=== PATIENT | male | born 1965 | race Caucasian/White ===

== ENCOUNTER → 2016-08-07 | Outpatient (CLI) | payer MEDICARE, MEDICAID | LOC: RAD 15:04 | DX: R22.42 Localized swelling, mass and lump, left lower limb (principal) ==

== ENCOUNTER → 2017-03-06 | Outpatient (CLI) | payer MEDICARE, MEDICAID | LOC: LAB 15:57 | DX: M81.0 Age-related osteoporosis without current pathological fracture (principal); L89.322 Pressure ulcer of left buttock, stage 2; J45.909 Unspecified asthma, uncomplicated; R73.02 Impaired glucose tolerance (oral); R97.20 Elevated prostate specific antigen [PSA]; N52.03 Combined arterial insufficiency and corporo-venous occlusive erectile dysfunction; R20.2 Paresthesia of skin ==

== ENCOUNTER → 2017-08-01 | Outpatient (CLI) | payer MEDICARE, MEDICAID | LOC: LAB 11:10 | PROVIDERS: Internal Medicine | DX: D64.9 Anemia, unspecified (principal) ==

== ENCOUNTER → 2018-03-18 | Outpatient (CLI) | payer MEDICARE, MEDICAID ==
[2018-03-19 01:02] LABS: FOLLICLE STIMULATING HORMONE 24.9 mIU/mL (1.0-12.0); LUTENIZING HORMONE 13.9 mIU/mL (0.6-12.1)
[2018-03-19 01:03] LABS: PROLACTIN 15.2 ng/mL (3.5-19.4)
== END ==
LOC: LAB 10:41
PROVIDERS: Internal Medicine
DX: E29.1 Testicular hypofunction (principal)

== ENCOUNTER → 2018-03-27 | Outpatient (CLI) | payer MEDICARE, MEDICAID | LOC: CARDLAB 08:00 → CARDREHAB 11:37 | DX: G47.33 Obstructive sleep apnea (adult) (pediatric) (principal); R06.83 Snoring; R09.02 Hypoxemia; E66.9 Obesity, unspecified; Z68.35 Body mass index [BMI] 35.0-35.9, adult | CPT/HCPCS: G0399 ==

== ENCOUNTER → 2018-06-01 | Outpatient (CLI) | payer MEDICARE, MEDICAID | LOC: RAD 15:25 | DX: M16.0 Bilateral primary osteoarthritis of hip (principal); Q65.89 Other specified congenital deformities of hip; S83.011A Lateral subluxation of right patella, initial encounter ==

== ENCOUNTER → 2018-06-08 | Outpatient (CLI) | payer MEDICARE, MEDICAID | LOC: RAD 07:28 | DX: M16.11 Unilateral primary osteoarthritis, right hip (principal); Q05.9 Spina bifida, unspecified | CPT/HCPCS: J3301; Q9967 ==

== ENCOUNTER → 2018-06-10 | Outpatient (CLI) | payer MEDICARE, MEDICAID | LOC: RAD 09:55 | DX: M16.0 Bilateral primary osteoarthritis of hip (principal); Q65.89 Other specified congenital deformities of hip; M81.0 Age-related osteoporosis without current pathological fracture; M17.11 Unilateral primary osteoarthritis, right knee; M85.861 Other specified disorders of bone density and structure, right lower leg; R10.2 Pelvic and perineal pain ==

== ENCOUNTER → 2019-02-10 | Outpatient (CLI) | payer MEDICARE, MEDICAID | LOC: RAD 10:08 | DX: M19.012 Primary osteoarthritis, left shoulder (principal) ==

== ENCOUNTER → 2019-04-26 | Outpatient (CLI) | payer MEDICARE, MEDICAID ==
[2019-04-26 16:38] LABS: BASO # 0.1 (0.02-0.10); EOS # 0.3 (0.04-0.40); HEMATOCRIT 37.9 % (42.0-52.0); HEMOGLOBIN 12.3 g/dL (13.5-18.0); LYMPH# 2.4 (1.50-4.00); MEAN CELL VOLUME 87 fl (78-100); MEAN CORPUSCULAR HEMOGLOBIN 28 pg (27-31); MEAN CORPUSCULAR HGB CONC 33 g/dL (33-37); MEAN PLATELET VOLUME 8.6 fl (7.4-10.4); NEU # 5.1 (1.40-6.50); PLATELET COUNT 335 K/mm3 (130-400); RED BLOOD COUNT 4.37 M/mm3 (4.20-5.60); RED CELL DISTRIBUTION WIDTH 14.5 % (11.5-14.5); WHITE BLOOD COUNT 8.9 K/mm3 (4.8-10.8)
[2019-04-26 16:39] LABS: POTASSIUM 3.6 mmol/L (3.5-5.1)
[2019-04-26 16:40] LABS: ALBUMIN 4.1 g/dL (3.5-5.0)
[2019-04-26 16:41] LABS: CALCIUM 9.3 mg/dL (8.3-10.5)
[2019-04-26 16:42] LABS: TOTAL PROTEIN 7.1 g/dL (6.4-8.3)
[2019-04-26 16:44] LABS: TOTAL BILIRUBIN 0.3 mg/dL (0.2-1.2)
[2019-04-26 18:00] LABS: ERYTHROCYTE SEDIMENTATION RATE 31 mm/hr (0-20)
== END ==
LOC: LAB 16:09
PROVIDERS: Internal Medicine
DX: M81.0 Age-related osteoporosis without current pathological fracture (principal); J45.909 Unspecified asthma, uncomplicated; E78.5 Hyperlipidemia, unspecified; L89.322 Pressure ulcer of left buttock, stage 2; N52.03 Combined arterial insufficiency and corporo-venous occlusive erectile dysfunction; R73.02 Impaired glucose tolerance (oral); R97.20 Elevated prostate specific antigen [PSA]

== ENCOUNTER → 2021-06-01 | Outpatient (CLI) | payer MEDICARE, MEDICAID ==
[2021-06-01 10:41] LABS: BASO # 0.05 K/mm3 (0.02-0.10); EOS # 0.11 K/mm3 (0.04-0.40); EOS % 1.6 % (0.0-4.0); HEMATOCRIT 42.1 % (42.0-52.0); HEMOGLOBIN 13.5 g/dL (13.5-18.0); LYMPH# 1.46 K/mm3 (1.50-4.00); MEAN CELL VOLUME 87 fl (78-100); MEAN CORPUSCULAR HEMOGLOBIN 28 pg (27-31); MEAN CORPUSCULAR HGB CONC 32 g/dL (33-37); MEAN PLATELET VOLUME 9.6 fl (7.4-10.4); NEU # 4.84 K/mm3 (1.40-6.50); PLATELET COUNT 275 K/mm3 (130-400); RED BLOOD COUNT 4.86 M/mm3 (4.20-5.60); RED CELL DISTRIBUTION WIDTH 14.2 % (11.5-14.5); WHITE BLOOD COUNT 7.1 K/mm3 (4.8-10.8)
[2021-06-01 10:47] LABS: ALBUMIN 4.3 g/dL (3.5-5.0); POTASSIUM 3.9 mmol/L (3.5-5.1)
[2021-06-01 10:48] LABS: CALCIUM 9.5 mg/dL (8.3-10.5)
[2021-06-01 10:49] LABS: TOTAL PROTEIN 7.5 g/dL (6.4-8.3)
[2021-06-01 10:51] LABS: TOTAL BILIRUBIN 0.7 mg/dL (0.2-1.2)
[2021-06-01 22:12] LABS: TESTOSTERONE 184 ng/dL (221-716)
[2021-06-04 12:14] LABS: THEOPHYLLINE AMS
== END ==
LOC: LAB 09:46
PROVIDERS: Internal Medicine
DX: J45.909 Unspecified asthma, uncomplicated (principal); K90.9 Intestinal malabsorption, unspecified; E23.0 Hypopituitarism; R73.03 Prediabetes

== ENCOUNTER → 2021-12-11 | Outpatient (CLI) | payer MEDICARE, MEDICAID ==
[2021-12-11 11:11] LABS: BASO # 0.05 K/mm3 (0.02-0.10); EOS % 1.3 % (0.0-4.0); HEMATOCRIT 46.6 % (42.0-52.0); HEMOGLOBIN 15.2 g/dL (13.5-18.0); MEAN CELL VOLUME 84 fl (78-100); MEAN CORPUSCULAR HEMOGLOBIN 27 pg (27-31); MEAN CORPUSCULAR HGB CONC 33 g/dL (33-37); MEAN PLATELET VOLUME 8.9 fl (7.4-10.4); MONO # 0.56 K/mm3 (0.20-0.80); NEU # 6.06 K/mm3 (1.40-6.50); PLATELET COUNT 306 K/mm3 (130-400); RED BLOOD COUNT 5.57 M/mm3 (4.20-5.60); RED CELL DISTRIBUTION WIDTH 14.5 % (11.5-14.5); WHITE BLOOD COUNT 7.9 K/mm3 (4.8-10.8)
[2021-12-11 11:19] LABS: ALBUMIN 4.1 g/dL (3.5-5.0); POTASSIUM 3.6 mmol/L (3.5-5.1)
[2021-12-11 11:20] LABS: CALCIUM 9.7 mg/dL (8.3-10.5)
[2021-12-11 11:23] LABS: TOTAL BILIRUBIN 0.7 mg/dL (0.2-1.2)
[2021-12-11 12:20] LABS: ERYTHROCYTE SEDIMENTATION RATE 20 mm/hr (0-20)
[2021-12-11 22:49] LABS: TESTOSTERONE 684 ng/dL (221-716)
== END ==
LOC: LAB 10:48
PROVIDERS: Internal Medicine
DX: Z12.5 Encounter for screening for malignant neoplasm of prostate (principal); K90.9 Intestinal malabsorption, unspecified; E78.2 Mixed hyperlipidemia; G80.9 Cerebral palsy, unspecified; G47.33 Obstructive sleep apnea (adult) (pediatric); L89.159 Pressure ulcer of sacral region, unspecified stage; E55.9 Vitamin D deficiency, unspecified; E23.0 Hypopituitarism; J45.909 Unspecified asthma, uncomplicated; R73.03 Prediabetes

== ENCOUNTER → 2023-04-02 | Outpatient (CLI) | payer MEDICARE, MEDICAID | LOC: LAB 06:35 | DX: Z12.11 Encounter for screening for malignant neoplasm of colon (principal); E23.0 Hypopituitarism; R73.03 Prediabetes; I10 Essential (primary) hypertension; E78.5 Hyperlipidemia, unspecified; K90.9 Intestinal malabsorption, unspecified; E78.2 Mixed hyperlipidemia; M81.0 Age-related osteoporosis without current pathological fracture; E55.9 Vitamin D deficiency, unspecified ==

== ENCOUNTER → 2023-07-27 | Outpatient (CLI) | payer MEDICARE, MEDICAID | LOC: LAB 09:02 | DX: Z01.89 Encounter for other specified special examinations (principal) ==

== ENCOUNTER → 2023-12-01 | Outpatient (CLI) | payer MEDICARE, MEDICAID ==
[2024-01-21 10:09] LABS: VITAMIN B1 214.3
[2024-01-21 10:10] LABS: TESTOSTERONE 1044
[2024-01-21 11:35] LABS: ALBUMIN 4.3 g/dL (3.5-5.0); CALCIUM 9.9 mg/dL (8.3-10.5); MAGNESIUM 2.04 mg/dL (1.60-2.60); TOTAL BILIRUBIN 0.9 mg/dL (0.2-1.2); TOTAL PROTEIN 7.1 g/dL (6.4-8.3)
[2024-01-21 11:40] LABS: BASO # 0.03 K/mm3 (0.02-0.10); EOS # 0.11 K/mm3 (0.04-0.40); EOS % 1.6 % (0.0-4.0); HEMATOCRIT 48.3 % (42.0-52.0); HEMOGLOBIN 15.6 g/dL (13.5-18.0); LYMPH# 1.56 K/mm3 (1.50-4.00); MEAN CELL VOLUME 88 fl (78-100); MEAN CORPUSCULAR HEMOGLOBIN 28 pg (27-31); MEAN CORPUSCULAR HGB CONC 32 g/dL (33-37); MEAN PLATELET VOLUME 8.7 fl (7.4-10.4); MONO # 0.68 K/mm3 (0.20-0.80); NEU # 4.62 K/mm3 (1.40-6.50); PLATELET COUNT 271 K/mm3 (130-400); RED CELL DISTRIBUTION WIDTH 13.7 % (11.5-14.5)
[2024-01-22 13:52] LABS: FOLATE (FOLIC ACID) AMS
== END ==
LOC: LAB 12:35
PROVIDERS: Internal Medicine
DX: Z12.5 Encounter for screening for malignant neoplasm of prostate (principal); K90.9 Intestinal malabsorption, unspecified; R73.03 Prediabetes; E23.0 Hypopituitarism; E78.2 Mixed hyperlipidemia; I10 Essential (primary) hypertension

== ENCOUNTER → 2024-02-26 | Outpatient (REF) | payer MEDICARE, MEDICAID ==
[2024-02-26 06:22] LABS: BASO # 0.06 K/mm3 (0.02-0.10); EOS % 2.5 % (0.0-4.0); HEMATOCRIT 44.4 % (42.0-52.0); HEMOGLOBIN 14.7 g/dL (13.5-18.0); MEAN CELL VOLUME 88 fl (78-100); MEAN CORPUSCULAR HEMOGLOBIN 29 pg (27-31); MEAN CORPUSCULAR HGB CONC 33 g/dL (33-37); MEAN PLATELET VOLUME 9.2 fl (7.4-10.4); MONO # 0.78 K/mm3 (0.20-0.80); NEU # 4.84 K/mm3 (1.40-6.50); PLATELET COUNT 261 K/mm3 (130-400); RED BLOOD COUNT 5.07 M/mm3 (4.20-5.60); RED CELL DISTRIBUTION WIDTH 13.6 % (11.5-14.5); WHITE BLOOD COUNT 8.1 K/mm3 (4.8-10.8)
[2024-02-26 06:36] LABS: ALBUMIN 3.7 g/dL (3.5-5.0); CALCIUM 8.8 mg/dL (8.3-10.5); MAGNESIUM 1.83 mg/dL (1.60-2.60); TOTAL BILIRUBIN 0.6 mg/dL (0.2-1.2)
== END ==
LOC: LAB 05:30
PROVIDERS: Internal Medicine
DX: Z01.818 Encounter for other preprocedural examination (principal)

== ENCOUNTER → 2024-04-01 | Day surgery (SDC) | payer OTHER, MEDICAID ==
[~2024-04-01] MED LIST: Balanced Salt Ophth Irrig 15 ML BOTTLE *BULK OP SCH; Cyclopentolate 2% Ophth Soln 1 BOTTLE *BULK OP SCH; EPINEPHrine 1 MG/ML (1:1000) 1 ML AMP IR SCH; Ketorolac 0.5% Ophth Soln 5 ML Bottle *BULK OP SCH; Midazolam 2 MG/2 ML VIAL IV ONE; Phenylephrine 10% Ophth Soln 5 ML BOTTLE *BULK OP SCH; Polymyxin B Sulfate/Trimethoprim Ophth Soln 10 ML BOTTLE *BULK OP SCH; Povidone Iodine 5% Ophth Soln 30 ML BOTTLE *BULK OP SCH; Proparacaine 0.5% Ophth Soln 15 ML BOTTLE *BULK OP SCH; Tropicamide 1% Ophth Soln Bottle *BULK OP SCH
== END | disposition home or self-care (01) ==
LOC: MSO 03-18 09:24
DX: H25.13 Age-related nuclear cataract, bilateral (principal); G80.9 Cerebral palsy, unspecified; Z99.3 Dependence on wheelchair
CPT/HCPCS: 00142; J0171; J2250; V2632

== ENCOUNTER → 2024-04-15 | Day surgery (SDC) | payer OTHER, MEDICAID | LOC: MSO 09:37 | DX: H25.11 Age-related nuclear cataract, right eye (principal) | CPT/HCPCS: 00142; J0171; J2250; V2632 ==